=== PATIENT | male | born 1955 | race Asian ===

== ENCOUNTER 2016-07-23 09:38 | Outpatient (CLI) | payer OTHER ==
[2016-07-23 10:30] LABS: PLATELET COUNT 192 K/uL (142-355)
[2016-07-23 11:21] LABS: POTASSIUM 3.5 mmol/L (3.6-5.2); SODIUM 134 mmol/L (136-145)
== END 2016-07-23 19:21 | disposition home or self-care (01) ==
LOC: RAD 09:38
PROVIDERS: Family Medicine
DX: K21.9 Gastro-esophageal reflux disease without esophagitis (principal); R42 Dizziness and giddiness; I10 Essential (primary) hypertension; E11.9 Type 2 diabetes mellitus without complications; J44.9 Chronic obstructive pulmonary disease, unspecified; Z85.01 Personal history of malignant neoplasm of esophagus; R05 Cough
CPT/HCPCS: 36415; 80053; 80061; 81000; 82043; 82306; 82570; 83036; 83735; 84153; 84439; 84443; 84550; 85027

== ENCOUNTER 2016-11-23 19:49 | Outpatient (CLI) | payer OTHER | END 2016-11-23 19:59 | disposition short-term general hospital (02) | LOC: AMB 19:49 | DX: R06.02 Shortness of breath (principal); T82.838A Hemorrhage due to vascular prosthetic devices, implants and grafts, initial encounter | CPT/HCPCS: A0425; A0429 ==

== ENCOUNTER 2016-11-23 20:05 | Emergency (ER) | payer OTHER ==
[~2016-11-23] VITALS: Ht 170.2 cm; Wt 73.9 kg
== END 2016-11-23 22:00 | disposition home or self-care (01) ==
LOC: ED 20:05
DX: R06.09 Other forms of dyspnea (principal)
CPT/HCPCS: 36600; 82805; 99283

== ENCOUNTER → 2016-12-03 13:02 | Outpatient (CLI) | payer OTHER | END | disposition home or self-care (01) | LOC: AMB 13:02 | DX: Z04.8 Encounter for examination and observation for other specified reasons (principal) ==

== ENCOUNTER 2017-02-05 14:07 | Emergency (ER) | payer OTHER ==
[~2017-02-05] VITALS: Ht 167.6 cm; Wt 73.5 kg
[2017-02-05 14:15] VITALS: TEMP 97.6
[2017-02-05 15:15] LABS: PLATELET COUNT 186 K/uL (142-355)
[2017-02-05 15:33] LABS: POTASSIUM 4.5 mmol/L (3.6-5.2); SODIUM 141 mmol/L (136-145)
[2017-02-05 17:54] VITALS: BP 128/88
== END 2017-02-05 17:56 | disposition home or self-care (01) ==
LOC: ED 14:07
PROVIDERS: Specialist
DX: I10 Essential (primary) hypertension (principal); R91.8 Other nonspecific abnormal finding of lung field
CPT/HCPCS: 36415; 80048; 80307; 82550; 82553; 84484; 85027; 85379; 99284; G0479; Q9963

== ENCOUNTER 2017-03-17 12:20 | Outpatient (CLI) | payer OTHER | END 2017-03-17 12:33 | disposition short-term general hospital (02) | LOC: AMB 12:20 | DX: M25.552 Pain in left hip (principal) | CPT/HCPCS: A0425; A0429 ==

== ENCOUNTER 2017-03-17 12:33 | Emergency (ER) | payer OTHER ==
[~2017-03-17] VITALS: Ht 167.6 cm; Wt 73.5 kg
[2017-03-17 12:50] VITALS: TEMP 98.2
[2017-03-17 13:45] VITALS: BP 108/63
== END 2017-03-17 13:45 | disposition home or self-care (01) ==
LOC: ED 12:33
DX: M25.552 Pain in left hip (principal)
CPT/HCPCS: 99281